=== PATIENT | female | born 2000 | race Caucasian/White ===

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

== ENCOUNTER 2020-08-26 23:57 | Emergency (ER) | payer MEDICAID ==
[~2020-08-26] VITALS: Ht 160 cm; Wt 60.9 kg
[2020-08-27 00:01] VITALS: BP 117/69
--- NOTE | 2020-08-27 02:11 | NUR ---
Patient given discharge instructions and they have confirmed that they understand the instructions. Patient ambulatory with crutch walking
== END 2020-08-27 02:13 | disposition home or self-care (01) ==
LOC: ED 08-27 00:56
DX: S93.401A Sprain of unspecified ligament of right ankle, initial encounter (principal); F17.290 Nicotine dependence, other tobacco product, uncomplicated; W18.49XA Other slipping, tripping and stumbling without falling, initial encounter; Y93.01 Activity, walking, marching and hiking; Y92.488 Other paved roadways as the place of occurrence of the external cause; Y99.8 Other external cause status
CPT/HCPCS: 99283

== ENCOUNTER 2020-10-18 01:30 | Emergency (ER) | payer MEDICAID ==
[~2020-10-18] VITALS: Ht 160 cm; Wt 62.0 kg
--- NOTE | 2020-10-18 03:20 | NUR ---
pt to room from lobby
[2020-10-18 04:51] LABS: BASOPHILS % (AUTO) 1 % (0-1); EOSINOPHILS % (AUTO) 2 % (1-7); LYMPHOCYTES % (AUTO) 33 % (22-44); MEAN CORPUSCULAR HEMOGLOBIN 29.3 pg (27.0-34.8); MEAN CORPUSCULAR HGB CONC 32.7 g/dL (32.4-35.8); MEAN PLATELET VOLUME 9.5 fL (7.4-10.4); MONOCYTES % (AUTO) 7 % (2-9); NEUTROPHILS % (AUTO) 58 % (42-75); PLATELET COUNT 418 x10^3/uL (130-400); RED BLOOD COUNT 4.31 x10^6/uL (3.82-5.3); RED CELL DISTRIBUTION WIDTH 13.7 % (9.6-15.2)
[2020-10-18 05:08] LABS: ALBUMIN 3.5 g/dL (3.4-5.0); ANION GAP 5 mmol/L (5-15); CALCIUM 8.5 mg/dL (8.5-10.1); CHLORIDE 110 mmol/L (98-107)
[2020-10-18 05:12] LABS: MD NO
[2020-10-18 05:15] LABS: ALANINE AMINOTRANSFERASE 17 U/L (12-78); ALKALINE PHOSPHATASE 88 U/L (45-117); BILIRUBIN,TOTAL 0.2 mg/dL (0.2-1.0); CREATININE 0.74 mg/dL (0.55-1.02)
[2020-10-18 05:53] VITALS: BP 122/72
--- NOTE | 2020-10-18 05:54 | NUR ---
VSS. PT AMBULATORY. PT VERBALIZED UNDERSTANDING OF DISCHARGE INSTRUCTIONS.
== END 2020-10-18 06:26 | disposition home or self-care (01) ==
LOC: ED 05:58
DX: R10.11 Right upper quadrant pain (principal); R11.0 Nausea
CPT/HCPCS: 36415; 76700; 80053; 83690; 84703; 85025; 99284